=== PATIENT | male | born 1930 | race Caucasian/White ===

== ENCOUNTER 2017-04-13 16:11 | Inpatient (IN) | payer MEDICARE, OTHER ==
[~2017-04-13] VITALS: Ht 175.3 cm; Wt 59.8 kg
[2017-04-13 17:51] LABS: BASOPHILS 0.2 % (0-2); EOSINOPHILS 0.3 % (0-7); HEMATOCRIT 46.1 % (42.0-54.0); HEMOGLOBIN 16.9 g/dL (13.5-17.5); IMMATURE GRANULOCYTES 0.3 % (0-5); LYMPHOCYTES 10.1 % (15-50); MCH 31.9 pg (26.0-34.0); MCHC 36.7 g/dL (31.0-37.0); MCV 87.1 fL (80.0-100.0); MEAN PLATELET VOLUME 10.3 fL (7.4-10.4); MONOCYTES 12.2 % (2-11); NEUTROPHILS 76.9 % (40-80); PLATELET COUNT 187 10x3/uL (130-400); RBC 5.29 10x6/uL (4.20-6.10); RDW 13.1 % (11.5-14.5); WBC 6.3 10x3/uL (4.8-10.8)
[2017-04-13 18:02] LABS: HELICOBACTER PYLORI IGG NEGATIVE (NEGATIVE)
[2017-04-13 18:14] LABS: ALBUMIN 3.4 g/dL (3.4-5.0); ALKALINE PHOSPHATASE 63 U/L (46-116); ALT (SGPT) 15 U/L (10-68); BILIRUBIN - TOTAL 0.41 mg/dL (0.2-1.3); CALC OSMOLALITY 275 mosm/kg (275-300); CALCIUM 9.3 mg/dL (8.5-10.1); CHLORIDE - SERUM 92 mmol/L (98-107); CREATININE - SERUM 1.6 mg/dL (0.6-1.3); POTASSIUM - SERUM 3.9 mmol/L (3.5-5.1); PROTEIN - SERUM 8.8 g/dL (6.4-8.2); SODIUM 130 mmol/L (136-145); UREA NITROGEN 26 mg/dL (7-18); eGFR NON AFRICAN AMERICAN 43 mL/min (90-120)
[2017-04-13 18:15] LABS: GLUCOSE 271 mg/dL (74-106)
[2017-04-13 18:23] LABS: CREATINE KINASE 114 UL (21-232); PRO BNP 345 pg/mL (0-450)
[2017-04-13 18:28] LABS: TROPONIN-I < 0.017 ng/mL (0.000-0.060)
[2017-04-13 18:47] LABS: INR 1.01 (0.85-1.17); PROTIME 12.9 SECONDS (11.6-15.0)
[2017-04-13 18:47] LABS: APPEARANCE HAZY (CLEAR); BILIRUBIN NEGATIVE (NEGATIVE); COLOR YELLOW (YELLOW); GLUCOSE 1000 mg/dL (NEGATIVE); KETONE NEGATIVE (NEGATIVE); NITRITE POSITIVE (NEGATIVE); PROTEIN 1+ mg/dL (NEGATIVE); UROBILINOGEN NORMAL (NORMAL)
[2017-04-13 18:49] LABS: BACTERIA MODERATE /hpf (NONE SEEN); RED CELLS - URINE 25-50 /hpf (0-5)
[2017-04-13 18:50] LABS: AMORPHOUS SEDIMENT <1+ /lpf (NONE SEEN)
[2017-04-13 18:53] LABS: UDS - AMPHET NEGATIVE QUAL (NEGATIVE); UDS - BARB NEGATIVE QUAL (NEGATIVE); UDS - BENZO NEGATIVE QUAL (NEGATIVE); UDS - COCAINE NEGATIVE QUAL (NEGATIVE); UDS - OPIATE NEGATIVE QUAL (NEGATIVE); UDS - PCP NEGATIVE QUAL (NEGATIVE); UDS - THC NEGATIVE QUAL (NEGATIVE)
[2017-04-14] MEDS ORDERED: JANUMET XR 1001 EACH PO (03:26)
[2017-04-14] MEDS ORDERED: TOUJEO SOL300 UNIT/1 SC (03:28)
[2017-04-14 04:19] VITALS: BP 126/72; BMI 23.6
[2017-04-14 08:45] VITALS: BP 139/80
[2017-04-14 12:14] VITALS: BP 133/72
[2017-04-14 12:39] VITALS: BMI 23.6
[2017-04-14 16:00] VITALS: Ht 175.3 cm; Wt 59.8 kg
[2017-04-14 16:19] VITALS: BP 159/79
[2017-04-14 16:29] VITALS: BP 154/83
[2017-04-14 20:46] VITALS: BP 121/74
[2017-04-15 04:54] LABS: BASOPHILS 0 % (0-2); EOSINOPHILS 0 % (0-7); HEMATOCRIT 42.3 % (42.0-54.0); HEMOGLOBIN 14.8 g/dL (13.5-17.5); IMMATURE GRANULOCYTES 0.2 % (0-5); LYMPHOCYTES 18.4 % (15-50); MCH 30.3 pg (26.0-34.0); MCV 86.7 fL (80.0-100.0); MEAN PLATELET VOLUME 9.1 fL (7.4-10.4); MONOCYTES 9.4 % (2-11); PLATELET COUNT 134 10x3/uL (130-400); RBC 4.88 10x6/uL (4.20-6.10); RDW 12.9 % (11.5-14.5); WBC 5.3 10x3/uL (4.8-10.8)
[2017-04-15 05:13] LABS: ANION GAP 10.9 mmol/L (8-16); CALCIUM 8.4 mg/dL (8.5-10.1); CARBON DIOXIDE 27.8 mmol/L (21.0-32.0); CREATININE - SERUM 1.2 mg/dL (0.6-1.3); POTASSIUM - SERUM 3.7 mmol/L (3.5-5.1)
[2017-04-15 06:57] VITALS: BP 130/68
[2017-04-15 10:27] VITALS: BP 139/67
[2017-04-15 12:45] VITALS: BP 113/74
[2017-04-15 16:25] VITALS: BP 123/64
[2017-04-15 20:49] VITALS: BP 113/64
[2017-04-16 06:33] VITALS: BP 133/68
[2017-04-16 07:53] LABS: BASOPHILS 0.2 % (0-2); EOSINOPHILS 0 % (0-7); HEMATOCRIT 40.5 % (42.0-54.0); HEMOGLOBIN 14.3 g/dL (13.5-17.5); IMMATURE GRANULOCYTES 0.5 % (0-5); LYMPHOCYTES 12.2 % (15-50); MCH 30.6 pg (26.0-34.0); MCHC 35.3 g/dL (31.0-37.0); MCV 86.5 fL (80.0-100.0); MONOCYTES 9.2 % (2-11); NEUTROPHILS 77.9 % (40-80); PLATELET COUNT 128 10x3/uL (130-400); RBC 4.68 10x6/uL (4.20-6.10); RDW 12.7 % (11.5-14.5); WBC 5.6 10x3/uL (4.8-10.8)
[2017-04-16 08:05] LABS: ANION GAP 12.9 mmol/L (8-16); CALCIUM 8.1 mg/dL (8.5-10.1); CARBON DIOXIDE 25.8 mmol/L (21.0-32.0); CREATININE - SERUM 1.1 mg/dL (0.6-1.3); POTASSIUM - SERUM 3.7 mmol/L (3.5-5.1)
[2017-04-16 09:46] VITALS: BP 105/70
[2017-04-16 12:50] VITALS: BP 132/83
[2017-04-16 16:09] VITALS: BP 128/66
[2017-04-16 20:30] VITALS: BP 125/68
[2017-04-17 00:30] VITALS: BP 118/64
[2017-04-17 04:30] VITALS: BP 188/71
[2017-04-17 05:05] LABS: BASOPHILS 0.2 % (0-2); EOSINOPHILS 0.2 % (0-7); HEMATOCRIT 35.6 % (42.0-54.0); HEMOGLOBIN 12.5 g/dL (13.5-17.5); IMMATURE GRANULOCYTES 0.2 % (0-5); LYMPHOCYTES 13.3 % (15-50); MCH 29.9 pg (26.0-34.0); MCHC 35.1 g/dL (31.0-37.0); MCV 85.2 fL (80.0-100.0); MEAN PLATELET VOLUME 9.5 fL (7.4-10.4); MONOCYTES 7.3 % (2-11); NEUTROPHILS 78.8 % (40-80); PLATELET COUNT 139 10x3/uL (130-400); RBC 4.18 10x6/uL (4.20-6.10); RDW 12.5 % (11.5-14.5); WBC 5.8 10x3/uL (4.8-10.8)
[2017-04-17 05:12] LABS: CALC OSMOLALITY 262 mosm/kg (275-300); CALCIUM 7.9 mg/dL (8.5-10.1); CARBON DIOXIDE 25.9 mmol/L (21.0-32.0); CHLORIDE - SERUM 95 mmol/L (98-107); CREATININE - SERUM 0.9 mg/dL (0.6-1.3); GLUCOSE 155 mg/dL (74-106); POTASSIUM - SERUM 3.4 mmol/L (3.5-5.1); SODIUM 130 mmol/L (136-145); UREA NITROGEN 11 mg/dL (7-18); eGFR NON AFRICAN AMERICAN 84 mL/min (90-120)
[2017-04-17 08:32] VITALS: BP 135/75
[2017-04-17 11:46] VITALS: BP 114/75
[2017-04-17 15:26] VITALS: BP 149/82
[2017-04-17 20:43] VITALS: BP 124/77
[2017-04-18] VITALS: BP 89/69
[2017-04-18 04:00] VITALS: BP 157/72
[2017-04-18 06:25] LABS: CALC OSMOLALITY 263 mosm/kg (275-300); CALCIUM 8.4 mg/dL (8.5-10.1); CARBON DIOXIDE 26.7 mmol/L (21.0-32.0); CHLORIDE - SERUM 96 mmol/L (98-107); CREATININE - SERUM 0.9 mg/dL (0.6-1.3); GLUCOSE 128 mg/dL (74-106); POTASSIUM - SERUM 3.7 mmol/L (3.5-5.1); SODIUM 131 mmol/L (136-145); UREA NITROGEN 11 mg/dL (7-18); eGFR NON AFRICAN AMERICAN 84 mL/min (90-120)
[2017-04-18 07:08] LABS: HEMATOCRIT 36.9 % (42.0-54.0); HEMOGLOBIN 13.1 g/dL (13.5-17.5); LYMPHOCYTES 13.3 % (15-50); MCH 30.1 pg (26.0-34.0); MCHC 35.5 g/dL (31.0-37.0); MCV 84.8 fL (80.0-100.0); MEAN PLATELET VOLUME 9.4 fL (7.4-10.4); RBC 4.35 10x6/uL (4.20-6.10); WBC 6.6 10x3/uL (4.8-10.8)
[2017-04-18 07:09] LABS: PLATELET COUNT 182 10x3/uL (130-400)
[2017-04-18 09:13] VITALS: BP 134/79
[2017-04-18 13:46] VITALS: BP 145/76
[2017-04-18 17:46] VITALS: BP 151/92
[2017-04-18 20:00] VITALS: BP 148/89
[2017-04-19 04:00] VITALS: BP 138/77
[2017-04-19 05:59] LABS: BASOPHILS 0.7 % (0-2); EOSINOPHILS 0.5 % (0-7); HEMOGLOBIN 13.9 g/dL (13.5-17.5); IMMATURE GRANULOCYTES 0.4 % (0-5); LYMPHOCYTES 17.9 % (15-50); MCH 30.3 pg (26.0-34.0); MCHC 35.6 g/dL (31.0-37.0); MEAN PLATELET VOLUME 10.1 fL (7.4-10.4); MONOCYTES 8.4 % (2-11); NEUTROPHILS 72.1 % (40-80); RBC 4.59 10x6/uL (4.20-6.10); RDW 12.5 % (11.5-14.5); WBC 7.5 10x3/uL (4.8-10.8)
[2017-04-19 06:15] LABS: CALC OSMOLALITY 267 mosm/kg (275-300); CALCIUM 8.6 mg/dL (8.5-10.1); CARBON DIOXIDE 21.6 mmol/L (21.0-32.0); CHLORIDE - SERUM 96 mmol/L (98-107); CREATININE - SERUM 0.8 mg/dL (0.6-1.3); GLUCOSE 144 mg/dL (74-106); POTASSIUM - SERUM 3.4 mmol/L (3.5-5.1); SODIUM 133 mmol/L (136-145); UREA NITROGEN 11 mg/dL (7-18); eGFR NON AFRICAN AMERICAN > 90 mL/min (90-120)
[2017-04-19 06:16] LABS: PLATELET COUNT 250 10x3/uL (130-400)
[2017-04-19 09:10] VITALS: BP 130/80
[2017-04-19 12:16] VITALS: BP 120/72
[2017-04-19 16:45] VITALS: BP 130/83
[2017-04-19 20:00] VITALS: BP 135/66
[2017-04-20 06:12] VITALS: BP 145/81
[2017-04-20 08:38] VITALS: BP 129/71
[2017-04-20] MEDS ORDERED: LEVAQUIN750 MG PO ×2 (11:03→11:04)
[2017-04-20 12:30] VITALS: BP 150/79
== END 2017-04-20 14:31 | DRG 205 ==
LOC: D.ER 16:11 → D.M2 22:40
PROVIDERS: Family Medicine; Internal Medicine Nephrology; Nurse Practitioner Family
DX: J98.11 Atelectasis (principal); J18.9 Pneumonia, unspecified organism; G92 Toxic encephalopathy; N39.0 Urinary tract infection, site not specified; E87.1 Hypo-osmolality and hyponatremia; N17.9 Acute kidney failure, unspecified; I10 Essential (primary) hypertension; E78.5 Hyperlipidemia, unspecified; K21.9 Gastro-esophageal reflux disease without esophagitis; B95.7 Other staphylococcus as the cause of diseases classified elsewhere; E11.65 Type 2 diabetes mellitus with hyperglycemia; M47.812 Spondylosis without myelopathy or radiculopathy, cervical region; R13.10 Dysphagia, unspecified